=== PATIENT | female | born 1940 | race Caucasian/White ===

== ENCOUNTER → 2017-03-02 | Outpatient (CLI) | payer MEDICARE, OTHER ==
[~2017-03-02] MED LIST: ASPIR 8181 MG PO; CATAPRES 0.1MG0.1 MG PO; COLCHICINE 0.60.6 MG PO; IBUPROFEN400 MG PO; LEVAQUIN500 MG PO; LIPITOR80 MG PO; MEDROL4 MG PO; NORVASC 5 MG TAB5 MG PO; OMEPRAZOLE20 MG PO; SYMBICORT 16010.2 GM INH; SYNTHROID100 MCG PO; TENORMIN 25 MG25 MG PO
== END ==
LOC: CT 08:30
DX: R93.8 Abnormal findings on diagnostic imaging of other specified body structures (principal); D16.4 Benign neoplasm of bones of skull and face; R91.8 Other nonspecific abnormal finding of lung field; M89.9 Disorder of bone, unspecified
CPT/HCPCS: 70250; 71250

== ENCOUNTER 2022-01-19 18:22 | Inpatient (IN) | payer MEDICARE ==
[~2022-01-19] VITALS: Ht 162.6 cm; Wt 83.6 kg
[2022-01-19 19:26] LABS: HEMOGLOBIN 11.1 gm/dl (12.3-15.3); RED BLOOD COUNT 4.14 M/UL (4.00-5.10); WHITE BLOOD COUNT 6.9 K/UL (4.5-11.0)
[2022-01-20] MEDS ORDERED: COREG 12.5MG12.5 MG PO (06:04)
[2022-01-20] MEDS ORDERED: GABAPENTIN400 MG PO (06:04)
[2022-01-20] MEDS ORDERED: PROAIR HFA8.5 GM INH (06:05)
[2022-01-20] MEDS ORDERED: CRESTOR40 MG PO (10:11)
[2022-01-20] MEDS ORDERED: HYDROCHLOROTH12.5 MG PO (10:12)
[2022-01-21] MEDS ORDERED: CARVEDILOL25 MG PO (10:22)
[2022-01-21] MEDS ORDERED: ELIQUIS 5 MG TAB5 MG PO (10:22)
[2022-01-21] MEDS ORDERED: POTASSIUM CHLO20 ME1 PO (11:02)
[2022-01-21] MEDS ORDERED: LASIX40 MG PO (11:02)
== END 2022-01-21 14:40 | disposition home or self-care (01) | DRG 291 ==
LOC: ER1 18:22 → MED SURG 4 21:58 → CDU 21:58 → MED SURG 4 01-20 08:01
PROVIDERS: Internal Medicine; Physician Assistant; ADMIT Internal Medicine
PROC: B24BZZZ Ultrasonography of Heart with Aorta (ICD-10-PCS; principal; 2022-01-20)
DX: I13.0 Hypertensive heart and chronic kidney disease with heart failure and stage 1 through stage 4 chronic kidney disease, or unspecified chronic kidney disease (principal); I50.33 Acute on chronic diastolic (congestive) heart failure; K21.9 Gastro-esophageal reflux disease without esophagitis; D50.9 Iron deficiency anemia, unspecified; I08.1 Rheumatic disorders of both mitral and tricuspid valves; Z20.822 Contact with and (suspected) exposure to COVID-19; I48.91 Unspecified atrial fibrillation; I25.10 Atherosclerotic heart disease of native coronary artery without angina pectoris; M54.12 Radiculopathy, cervical region; N18.30 Chronic kidney disease, stage 3 unspecified; J44.9 Chronic obstructive pulmonary disease, unspecified; E03.9 Hypothyroidism, unspecified; E66.9 Obesity, unspecified; E78.5 Hyperlipidemia, unspecified; D63.1 Anemia in chronic kidney disease; I27.20 Pulmonary hypertension, unspecified; Z79.82 Long term (current) use of aspirin; Z99.81 Dependence on supplemental oxygen; Z79.01 Long term (current) use of anticoagulants; Z87.891 Personal history of nicotine dependence; Z72.3 Lack of physical exercise; Z82.49 Family history of ischemic heart disease and other diseases of the circulatory system; Z83.3 Family history of diabetes mellitus; Z80.9 Family history of malignant neoplasm, unspecified; Z95.5 Presence of coronary angioplasty implant and graft; Z68.31 Body mass index [BMI] 31.0-31.9, adult
CPT/HCPCS: ECHO; 71045; 80048; 80053; 81001; 82550; 82553; 83735; 83880; 84439; 84443; 84484; 85025; 87086; 93005; 93306; 94760; 96374; 96375; 99285; J1940; U0002

== ENCOUNTER → 2022-05-31 | Outpatient (CLI) | payer MEDICARE ==
[~2022-05-31] MED LIST changes: +CARVEDILOL25 MG PO; +COREG 12.5MG12.5 MG PO; +CRESTOR40 MG PO; +ELIQUIS 5 MG TAB5 MG PO; +GABAPENTIN400 MG PO; +HYDROCHLOROTH12.5 MG PO; +LASIX40 MG PO; +POTASSIUM CHLO20 ME1 PO; +PROAIR HFA8.5 GM INH
== END ==
LOC: EXRD 09:58
DX: N17.9 Acute kidney failure, unspecified (principal)
CPT/HCPCS: 76775